=== PATIENT | female | born 1995 | race Caucasian/White ===

== ENCOUNTER 2018-08-07 13:34 | Emergency (ER) | payer OTHER ==
[~2018-08-07] VITALS: Ht 175.3 cm; Wt 101.2 kg
--- NOTE | 2018-08-07 14:10 | NUR ---
Erich barbs successfully removed by Dr. Anguiano Pt medically cleared for discharge and ok to book
[2018-08-07 14:12] VITALS: BP 120/84
== END 2018-08-07 14:12 | disposition home or self-care (01) ==
LOC: ER 13:39
DX: T75.4XXA Electrocution, initial encounter (principal); Z60.2 Problems related to living alone; W86.8XXA Exposure to other electric current, initial encounter; Y93.89 Activity, other specified; Y92.89 Other specified places as the place of occurrence of the external cause; Y99.8 Other external cause status